=== PATIENT | male | born 1995 | race Caucasian/White ===

== ENCOUNTER 2017-08-07 16:48 | Emergency (ER) | payer OTHER ==
[2017-08-07 16:57] VITALS: TEMP 37; Ht 188 cm
--- NOTE | 2017-08-07 18:24 | DIAGNOSTIC IMAGING REPORT ---
L TIBIA/FIBULA 2 VIEWS ROUTINE, L KNEE 3 VIEWS HISTORY: 21 years-old Male Left foot injury s/p eversion injury. Knee, prox loaiza and foot acute left lower extremity pain status post injury COMPARISON: None available TECHNIQUE: 2 views of the left tibia and fibula and 3 views of the left knee FINDINGS: KNEE: There is no acute fracture, dislocation or significant degenerative changes. Small joint effusion. Mild soft tissue swelling about the knee. TIBIA/FIBULA: No acute fracture or dislocation. Bone mineralization is within normal limits. Soft tissues are unremarkable without opaque foreign body. IMPRESSION: 1. No acute fracture or dislocation of the knee, tibia or fibula. 2. Small knee joint effusion with mild soft tissue swelling. The above report was generated using voice recognition software. It may contain grammatical, syntax or spelling errors. Electronically signed by: Jericho Whitman M.D. 08/07/2017 6:23 PM Dictated Date/Time: 08/07/2017 6:21 PM
--- NOTE | 2017-08-07 18:25 | DIAGNOSTIC IMAGING REPORT ---
L FOOT MIN 3 VIEWS ROUTINE CLINICAL HISTORY: 21 years-old Male presenting with Left foot injury s/p eversion injury. Knee, prox loaiza and foot . TECHNIQUE: Frontal, oblique, and lateral views the left foot were obtained. COMPARISON: None. FINDINGS: No acute fracture or malalignment. No radiographic soft tissue abnormality. IMPRESSION: No acute osseous injury of the left foot. Electronically signed by: Heber Trevizo M.D. 08/07/2017 6:23 PM Dictated Date/Time: 08/07/2017 6:22 PM
[2017-08-07 18:30] VITALS: BP 115/76; PULSE 99; O2SAT 97
--- NOTE | 2017-08-07 18:32 | EMERGENCY ROOM VISIT NOTE ---
History First contact with patient: 17:01 Chief Complaint: LEG PAIN,LEG INJURY Stated Complaint: INJURY TO LEFT ANKLE AND LEFT KNEE History of Present Illness The patient is a 21 year old male who presents to the Emergency Room via private vehicle with complaints of "injury to left ankle and left knee". The patient states that yesterday while participating in basketball he jumped up and landed on someone's foot. He states that he everted the left ankle and now he has pain in the left medial aspect of the foot, as well as the left knee. He notes pain with walking. He rates his pain as a 9/10. He denies any numbness or tingling. Review of Systems A complete 6-point Review of Systems was discussed with the patient, with pertinent positives and negatives listed in the History of Present Illness. All remaining Review of Systems questions can be considered negative unless otherwise specified. Past Medical/Surgical History No pertinent. Family History No pertinent. Social History Smoking Status: Current Every Day Smoker [employer] [employer] student and lives locally Current/Historical Medications No Active Prescriptions or Reported Meds Physical Exam Vital Signs Date Time Temp Pulse Resp B/P (MAP) Pulse Ox O2 Delivery O2 Flow Rate FiO2 08/07/17 18:30 99 20 115/76 97 Room Air 08/07/17 16:57 37.0 99 20 107/74 97 Room Air Physical Exam VITAL SIGNS - Vital signs and nursing notes were reviewed. Stable. GENERAL -21-year-old male appearing his stated age who is in no acute distress. Communicates well with provider and answers questions appropriately. SKIN - Without rashes. No petechial rashes. There is no evidence of compartment syndrome of the left lower extremity. Calf is soft. EXTREMITIES - No clubbing or peripheral cyanosis. No pretibial edema present. There is no proximal leg tenderness on the left, tenderness begins at the location of the lateral left knee joint and there is no loaiza tenderness but there is tenderness at the medial aspect of the left foot. Decreased range of motion secondary to tenderness. No dislocation or gross abnormality. He is neurovascularly intact in this region. +5/5 strength noted in UE/LE bilaterally. Medical Decision & Procedures ER Provider Diagnostic Interpretation: L TIBIA/FIBULA 2 VIEWS ROUTINE, L KNEE 3 VIEWS HISTORY: 21 years-old Male Left foot injury s/p eversion injury. Knee, prox loaiza and foot acute left lower extremity pain status post injury COMPARISON: None available TECHNIQUE: 2 views of the left tibia and fibula and 3 views of the left knee FINDINGS: KNEE: There is no acute fracture, dislocation or significant degenerative changes. Small joint effusion. Mild soft tissue swelling about the knee. TIBIA/FIBULA: No acute fracture or dislocation. Bone mineralization is within normal limits. Soft tissues are unremarkable without opaque foreign body. IMPRESSION: 1. No acute fracture or dislocation of the knee, tibia or fibula. 2. Small knee joint effusion with mild soft tissue swelling. The above report was generated using voice recognition software. It may contain grammatical, syntax or spelling errors. Electronically signed by: Jericho Whitman M.D. 08/07/2017 6:23 PM Dictated Date/Time: 08/07/2017 6:21 L FOOT MIN 3 VIEWS ROUTINE CLINICAL HISTORY: 21 years-old Male presenting with Left foot injury s/p eversion injury. Knee, prox loaiza and foot . TECHNIQUE: Frontal, oblique, and lateral views the left foot were obtained. COMPARISON: None. FINDINGS: No acute fracture or malalignment. No radiographic soft tissue abnormality. IMPRESSION: No acute osseous injury of the left foot. Electronically signed by: Heber Trevizo M.D. 08/07/2017 6:23 PM Dictated Date/Time: 08/07/2017 6:22 PM Medical Decision Patient was seen and evaluated as above. He presents to us today with left leg pain. X-rays were obtained. Results as above. I agree with radiologist findings. These were reviewed with the patient. There is no fracture. I suspect she likely has a ligamentous knee injury and a sprain of the foot. He' ll be placed in a knee immobilizer, and postop shoe. He is to follow-up with [facility] and orthopedics. He was given a prescription for a scooter to help ambulate well. He was educated upon management, educated upon worrisome symptoms in which to return, had questions answered prior to discharge , and was discharged home in good condition. In the evaluation and treatment of this patient, the following differential diagnoses were considered: Patellar Fracture, Tibial Plateau Fracture, Distal Femur Fracture, ACL Injury, PCL Injury, Collateral Ligament Injury, Pes Anserine Bursitis, Maisonneuve Fracture. Impression Primary Impression: Leg pain, left Departure Information Dispostion Home / Self-Care Condition GOOD Prescriptions No Active Prescriptions or Reported Meds Referrals No Doctor, Assigned (PCP) German Collazo D.O. Patient Instructions My [facility] Additional Instructions You have been treated in the Emergency Department for Knee Pain leg and foot pain. For pain control, you can use the following stxh-pzk-vavhzab medicines (if >12 yo): - Regular strength (325mg/tab) Tylenol (acetaminophen) 2 tabs every 4-6 hours as needed. Do not exceed 12 tablets in a 24 hour period. Avoid taking more than 3 grams (3000 mg) of Tylenol per day. This includes any other sources of acetaminophen you may take on a regular basis. - Regular strength (200 mg/tab) Advil (ibuprofen) 1-2 tabs every 4-6 hours as needed. Do not exceed a dose of 3200 mg per day. If this is a recent injury (<24 hrs), ice can be applied to the area of pain for the first 3 days to help decrease pain and inflammation. Ice massages can be performed by freezing water in a paper cup, peeling back the cup to expose the ice and then massaging over the affected area. You have been provided the number for an Orthopaedic Surgeon. You should call this number as soon as possible to establish a follow-up visit from today's Emergency Department visit. Keep the knee brace in place until cleared by Orthopedics. Use the crutches you have been provided to keep ALL weight off of the knee until weight bearing is tolerable. Return to the Emergency Department if your current symptoms worsen despite treatment course outlined above.
== END 2017-08-07 19:26 | disposition home or self-care (01) ==
LOC: C.EDB 16:50 → C.EDD 19:26
DX: M79.605 Pain in left leg (principal); F17.200 Nicotine dependence, unspecified, uncomplicated